=== PATIENT | female | born 1965 | race Caucasian/White ===

== ENCOUNTER → 2020-09-16 | Emergency (ER) | payer BC ==
[~2020-09-16] VITALS: Ht 152.4 cm; Wt 77.3 kg
[~2020-09-16] MED LIST: HYDR-3965 PO; HYDROcodone/acetaminophen 10/325mg tab PO ONE; LIDOcaine 1% W/epiNEPHrine 1:200,000 10ml vial IJ ONE
--- NOTE | 2020-09-16 13:14 | NUR ---
PA had done nerve block with lidocaine he had pulled out himself from fast track area. Pt tolerated well. Tech splinted wrist, pt tolerated well.
[2020-09-16 13:20] VITALS: BP 133/93
== END | disposition home or self-care (01) ==
LOC: ER 11:06
DX: S52.502A Unspecified fracture of the lower end of left radius, initial encounter for closed fracture (principal); S52.602A Unspecified fracture of lower end of left ulna, initial encounter for closed fracture; Z88.8 Allergy status to other drugs, medicaments and biological substances; Z79.899 Other long term (current) drug therapy; W18.09XA Striking against other object with subsequent fall, initial encounter; Z91.81 History of falling; Y93.89 Activity, other specified; Y92.89 Other specified places as the place of occurrence of the external cause; Y99.8 Other external cause status; M25.532 Pain in left wrist
CPT/HCPCS: 29105; 29125; 73110; 99283